=== PATIENT | female | born 1980 | race Caucasian/White ===

== ENCOUNTER 2016-05-17 18:58 | Emergency (ER) | payer SELFPAY ==
[~2016-05-17] VITALS: Ht 149.9 cm; Wt 44.5 kg
[~2016-05-17 18:58] MED LIST: SERT20OR PO
[2016-05-17 19:33] VITALS: Ht 149.9 cm; Wt 44.5 kg
[2016-05-17] MEDS ORDERED: IBUPROFEN 600 MG TAB PO STA (21:32)
[2016-05-17] MEDS ORDERED: FAMOTIDINE 20 MG TAB PO STA (21:32)
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
[2016-05-17] MEDS ORDERED: LORAZEPAM 0.5 MG TAB PO ONE (22:00)
--- NOTE | 2016-05-17 22:20 | RADRPT ---
PROCEDURE: XR Chest AP portable CLINICAL INDICATION: Chest pain, short of breath TECHNIQUE: An AP portable radiograph of the chest was submitted. COMPARISON: None. FINDINGS: Support Hardware: None Cardiovascular: The cardiovascular structures appear normal. Lung Beebe: The lung beebe are hyperexpanded but clear. Pleural Spaces: No pneumothorax or pleural effusion is identified. Osseous Structures: The osseous structures appear intact. Soft Tissues: The soft tissues appear unremarkable. IMPRESSION: 1. Pulmonary hyperexpansion 2. Otherwise, unremarkable portable chest. Physician Lior Date Time Electronically viewed and signed by Rosalba Shine Physician on 05/17/2016 22:19 /
[2016-05-17 22:28] LABS: ADD SCAN DIFF NO
[2016-05-17 22:36] LABS: BASOPHIL # 0.1 10^3/ul (0.0-0.1); BASOPHILS % 0.6 % (0.0-2.0); EOSINOPHILS # 0.2 10^3/ul (0.0-0.5); EOSINOPHILS % 1.7 % (0.0-7.0); HEMATOCRIT 41.6 % (37.0-47.0); HEMOGLOBIN 14.1 g/dl (12.0-16.0); LYMPHOCYTES # 3.6 10^3/ul (0.8-2.9); LYMPHOCYTES % 32.2 % (15.0-51.0); MEAN CORPUSCULAR HGB CONC 33.9 g/dl (32.0-37.0); MEAN CORPUSCULAR VOLUME 97.4 fl (82.0-101.0); MONOCYTE # 0.9 10^3/ul (0.3-0.9); MONOCYTES % 8.1 % (0.0-11.0); NEUTROPHIL # 6.3 10^3/ul (1.6-7.5); NEUTROPHILS % 57.1 % (39.0-77.0); PLATELET COUNT 296 10^3/UL (140-415); RED BLOOD COUNT 4.27 10^6/ul (4.20-5.40); RED CELL DISTRIBUTION WIDTH 12.1 % (11.5-14.5); WHITE BLOOD COUNT 11.1 10^3/ul (4.8-10.8)
[2016-05-17 22:42] LABS: ALBUMIN 4.9 g/dl (3.3-4.9)
[2016-05-17 22:43] LABS: CHLORIDE 104 mmol/L (97-110); POTASSIUM 3.9 mmol/L (3.5-5.1); SODIUM 145 mmol/L (135-144)
[2016-05-17 22:45] LABS: ALBUMIN/GLOBULIN RATIO 1.58; ANION GAP 19 (8-16); ASPARTATE AMINO TRANSFERASE 24 IU/L (15-46); BILIRUBIN,INDIRECT 0.2 mg/dl (0-1.1); BILIRUBIN,TOTAL 0.2 mg/dl (0.2-1.3); CARBON DIOXIDE 26 mmol/L (21-31); CREATININE 0.63 mg/dl (0.44-1.00)
[2016-05-17 22:46] LABS: ALANINE AMINOTRANSFERASE 25 IU/L (13-69); ALKALINE PHOSPHATASE 74 IU/L (42-121); BLOOD UREA NITROGEN 14 mg/dl (7-20); CALCIUM 9.4 mg/dl (8.4-10.2); GLUCOSE 93 mg/dl (70-220)
[2016-05-17 23:11] LABS: TROPONIN-I < 0.012 ng/ml (0.00-0.12)
[2016-05-17] MEDS ORDERED: IBUP-1542 PO ×2 (23:38→23:41)
[2016-05-17 23:56] VITALS: BP 112/62; PULSE 78; RESP 18; TEMP 98.3
== END 2016-05-17 23:57 | disposition home or self-care (01) ==
LOC: FTE 18:58
DX: R07.9 Chest pain, unspecified (principal); J45.909 Unspecified asthma, uncomplicated
CPT/HCPCS: 36415; 71010; 80053; 83690; 84484; 85025; 93005